=== PATIENT | female | born 1980 | race Caucasian/White ===

== ENCOUNTER 2023-09-27 12:06 | Inpatient (IN) | payer BC, SELFPAY ==
--- NOTE | 2023-09-27 12:14 | ED.PSYCH ---
HPI - Psych General Chief Complaint: Psychiatric Symptoms Stated Complaint: SI Time Seen by Provider: 09/27/23 12:53 Source: patient Mode of arrival: ambulatory Limitations: no limitations History of Present Illness HPI Narrative: 43 year old female with pmhx significant for CE and depression presents to the ED today for evaluation of depression and suicidal ideation with plan x1 month. Patient admits to recent medication changes since the fall. She was placed on vrylar at the beginning of August which sent her into a manic phase where she was not eating, drinking or sleeping. She was taken off of this at the beginning of this month. After conversation with prescriber, patient has been off medications for the last 3 weeks. Over this time, she has felt increasingly depressed and has had thoughts of committing suicide by overdosing on medications at home. She states that the only reason she has not already done this is that she has 2 young children at home. Denies previous attempts at ending her life. Denies HI. Denies ah/th/vh. Denies etoh consumptions. Denies illicit substance use. Denies any physical concerns at present. Related Data Home Medications Medication Instructions Recorded Confirmed clonazepam 0.5 mg tablet (Klonopin) 0.5 mg PO BID PRN anxiety 09/27/23 09/27/23 lurasidone 20 mg tablet 20 mg PO DAILY 09/27/23 09/27/23 Allergies Allergy/AdvReac Type Severity Reaction Status Date / Time Penicillins [PENICILLINS] Allergy Mild RASH Unverified 04/22/20 19:49 vancomycin Allergy Rash Verified 09/27/23 12:15 Review of Systems Review of Systems: Constitutional: No fever, chills, fatigue, night sweats, weight changes ENT/Mouth: No ear pain, hearing loss, nasal congestion, sinus pain, rhinorrhea, sore throat Eyes: No eye pain, swelling, redness, vision changes, discharge Cardio: No chest pain, palpitations, DUMONT, orthopnea, peripheral edema Pulm: No SOB, cough, sputum, wheezing, dyspnea, hemoptysis GI: No nausea, vomiting, hematemesis, abdominal pain, diarrhea, constipation, hematochezia, melena : No irregular bleeding, dysuria, frequency, urgency, hesitancy, hematuria, flank pain, urinary flow changes, urinary incontinence or retention MSK: No back pain, neck pain, joint pain, myalgias Skin: No lesions, rashes Neuro: No weakness, numbness, paresthesias, LOC, dizziness, headache Psych: No anxiety/panic, HI, AH/VH, +depression, +SI All other systems reviewed and are negative. Neurologic: Reports Abnormal speech present [facility] Past Medical History Attestation statement: The following information was validated with the patient. Source: old records reviewed and nursing notes reviewed Social History Social History Advance Directives: No Advance Directives Information Provided: No Physical Exam Vital Signs: Vital Signs: Last Vital Signs Temp 98 F 09/27/23 12:15 Pulse 71 09/27/23 12:15 Resp 16 09/27/23 12:15 BP 119/78 09/27/23 12:15 Pulse Ox 99 09/27/23 12:15 O2 Del Method Room Air 09/27/23 12:15 BMI result Body Mass Index 19.9 Vital signs stable. Const: Other: + tearful General: cooperative, healthy appearing, comfortable and no acute distress Orientation/consciousness: patient oriented x3 Limitations: no limitations HEENT: Head: Yes normal to inspection, Yes No palpable skull fracture present, Yes normocephalic and Yes atraumatic Eyes: General: appearance normal, both eyes and all related structures Conjunctivae: conjunctivae normal Sclerae: sclerae normal Pupils: Equal, round and reactive pupils present Neck: Neck: Yes normal visual inspection and Yes full ROM Resp: Effort & Inspection: normal respiratory effort Auscultation: clear to auscultation bilaterally Cardio: Rate: regular rate Rhythm: regular rhythm Skin: General skin exam: no rashes or lesions noted Neuro: General: patient oriented x3 and gait normal Cranial nerves: Yes Equal, round and reactive pupils present Speech: Abnormal speech present Gait exam (Neuro): Normal gait present Psych: Appearance: grossly normal Speech and movement: Normal speech and movement present Affect: Sad affect present Attitude: cooperative Thought process: Normal thought process present Thought content: Normal thought content present Course Course Course Narrative: This is a rapid medical exam. Deferred additional HPI, ROS, PE to primary provider. 43 yo female with history of depression, anxiety here with suicidal thoughts, intrusive thoughts, feeling anxious since beginning of September. Recently started latuda, clonazepam. Plan to overdose on medication. No physical complaints Ordered labs,HERRERA Reevaluation(s) Reevaluation #1: 1521-- CBC without leukocytosis or anemia. H & H stable. No left shift. Chemistry without acute electrolyte abnormality requiring intervention. Normal renal and liver function. Urine with large amount of blood and RBCs consistent with current menstruation. Negative urine test. No evidence of urinary infection. Ethanol undetectable. Drug screen undetectable. > physician observation initiated pending care team and disposition Medical Decision Making Medical Decision Making [facility] Narrative: 43 year old female with pmhx significant for CE and depression presents to the ED today for evaluation of depression and suicidal ideation with plan x1 month. Vital signs stable. Afebrile. She is nontoxic-appearing and in no acute distress. Sad affect, tearful. No skin lesions or rashes. RRR. Lungs are CT bilaterally. Clinical concern for depression, anxiety, suicidal ideation. Lower suspicion for polysubstance use, etoh intoxication. Plan for basic labs, UA, UDS, and care team consult. Differential Diagnosis Differential Diagnoses: The differential diagnosis associated with the presentation includes as above. Admission/Observation Consideration of admission/observation: Escalation of care including admission/observation considered Lab Data [facility] Lab Attestation statement: I reviewed the patient's lab results. as above. 09/27/23 12:25 09/27/23 12:25 Labs: Lab Results 09/27/23 09/27/23 Range/Units 12:25 13:03 WBC 6.8 (4.8-10.8) X10*3/uL RBC 5.10 (4.20-5.50) X10*6/uL Hgb 14.8 (12.0-16.0) g/dl Hct 43.8 (37.0-47.0) % MCV 85.9 (80.0-98.0) fL MCH 29.0 (27.0-33.0) pg MCHC 33.8 (31.0-35.0) g/dl RDW 11.8 (11.0-16.0) % Plt Count 242 (160-400) X10*3/uL MPV 11.5 (9.4-12.3) fL Immature Gran % (Auto) 0.3 (0.0-0.4) % Neut % (Auto) 77.6 H (45-73) % Lymph % (Auto) 16.1 L (20-40) % Carter % (Auto) 5.6 (2-11) % Eos % (Auto) 0.1 (0-4) % Baso % (Auto) 0.3 (0-2) % Lymph # (Auto) 1.1 L (1.2-4.9) X10*3/uL Carter # (Auto) 0.4 (0.1-1.2) X10*3/uL Eos # (Auto) 0.0 (0.0-0.4) X10*3/uL Baso # (Auto) 0.0 (0.0-0.2) X10*3/uL Abs Immat Gran (auto) 0.02 (0.00-0.03) X10*3/uL Absolute Neuts (auto) 5.2 (2.0-8.3) x10*3/uL Absolute Nucleated RBC 0.000 (0.0-0.012) X10*3/uL Nucleated RBC % (auto) 0.0 (0.0-0.2) /100WBC Sodium 142 (135-145) mmol/L Potassium 3.5 (3.3-5.1) mmol/L Chloride 106 (96-108) mmol/L Carbon Dioxide 27 (22-29) mmol/L Anion Gap 13 (12-20) BUN 9 (9-16) mg/dL Creatinine 0.74 (0.5-1.4) mg/dL Estim Creat Clear Calc 92.7 Estimated GFR > 60 Random Glucose 97 (60-115) mg/dL Calcium 9.5 (8.4-10.2) mg/dL Total Bilirubin 0.4 (0.0-1.0) mg/dL Direct Bilirubin 0.2 (0.0-0.5) mg/dL AST 16 (5-31) U/L ALT 11 (0-31) U/L Alkaline Phosphatase 55 (39-117) U/L Total Protein 7.5 (6.5-8.0) g/dL Albumin 4.6 (3.5-5.0) g/dL Urine Color Yellow Urine Appearance Clear Urine pH 5.5 (5.0-9.0) Ur Specific [place] 1.020 (1.005-1.025) Urine Protein Negative (Neg-Trace) mg/dL Urine Glucose (UA) Negative (Negative) mg/dL Urine Ketones 15 (Negative) mg/dL Urine Blood Large (3+) H (Negative) Urine Nitrite Negative (Negative) Ur Leukocyte Esterase Negative (Negative) Urine RBC 11-20 H (0-2) /HPF Urine WBC 0-5 (0-5) /HPF Ur Squamous Epith Cells 0-2 (0-2) /HPF Calcium Oxalate Crystal Present Urine Bacteria None Seen (None Seen) Hyaline Casts 0-2 (0-2) /LPF Urine Test NEGATIVE (NEGATIVE) Salicylates < 5.0 L (15-30) mg/dL Urine Opiates Screen Not Detected (Not Detect) Urine Fentanyl Screen Not Detected (Not Detect) Acetaminophen < 3 (<30) mcg/mL Ur Barbiturates Screen Not Detected (Not Detect) Ur Phencyclidine Scrn Not Detected (Not Detect) Ur Amphetamines Screen Not Detected (Not Detect) U Benzodiazepines Scrn Not Detected (Not Detect) Urine Cocaine Screen Not Detected (Not Detect) U Marijuana (THC) Screen Not Detected (Not Detect) Ethyl Alcohol < 10 mg/dL Chronic Conditions Patient?s care impacted by: Other (Anxiety, depression) Social Determinants Patient?s care significantly limited by Social Determinants of Health including: Other Social Determinant of Health Discharge Plan Discharge Clinical Impression: Depression, Suicidal ideation Patient Disposition: Still a Patient Prescriptions: No Action clonazepam [Klonopin] 0.5 mg tablet 0.5 mg PO BID PRN (Reason: anxiety) lurasidone 20 mg tablet 20 mg PO DAILY Interventions: Sutton-Suicide Risk Severity Scale Last Done: 09/27/23 15:06
[2023-09-27 12:15] VITALS: BP 119/78; PULSE 71; RESP 16; TEMP 36.6; O2SAT 99; BMI 19.9
[2023-09-27 12:35] LABS: MANUAL DIFF FLAG NO
[2023-09-27 12:42] LABS: Basophils Percent Auto 0.3 % (0-2); Eosinophils Percent Auto 0.1 % (0-4); Hematocrit 43.8 % (37.0-47.0); Hemoglobin 14.8 g/dl (12.0-16.0); Imm Gran Abs Auto 0.02 X10*3/uL (0.00-0.03); Imm Gran Pct Auto 0.3 % (0.0-0.4); Lymphocytes Absolute Auto 1.1 X10*3/uL (1.2-4.9); Lymphocytes Percent Auto 16.1 % (20-40); Mean Corpuscular HGB Conc 33.8 g/dl (31.0-35.0); Mean Corpuscular Volume 85.9 fL (80.0-98.0); Mean Platelet Volume 11.5 fL (9.4-12.3); Monocytes Absolute Auto 0.4 X10*3/uL (0.1-1.2); Monocytes Percent Auto 5.6 % (2-11); Neutrophils Absolute Auto 5.2 x10*3/uL (2.0-8.3); Neutrophils Percent Auto 77.6 % (45-73); Platelet Count 242 X10*3/uL (160-400); Red Cell Distribution Width 11.8 % (11.0-16.0); White Blood Count 6.8 X10*3/uL (4.8-10.8)
[2023-09-27 12:49] LABS: UPreg QC Valid YES; Urine Pregnancy NEGATIVE (NEGATIVE)
[2023-09-27 12:55] LABS: Acetaminophen LAB < 3 mcg/mL (<30); Alanine Aminotransferase 11 U/L (0-31); Albumin Level 4.6 g/dL (3.5-5.0); Alkaline Phosphatase 55 U/L (39-117); Anion Gap 13 (12-20); Aspartate Amino Transferase 16 U/L (5-31); Bilirubin Direct 0.2 mg/dL (0.0-0.5); Bilirubin Total 0.4 mg/dL (0.0-1.0); Blood Urea Nitrogen 9 mg/dL (9-16); Calcium 9.5 mg/dL (8.4-10.2); Carbon Dioxide 27 mmol/L (22-29); Chloride 106 mmol/L (96-108); Creatinine Clr Calc Pharmacy 92.7; Estimated Glomerular Filt Rate > 60; Ethanol < 10 mg/dL; Glucose Random 97 mg/dL (60-115); Potassium 3.5 mmol/L (3.3-5.1); Salicylate < 5.0 mg/dL (15-30); Sodium 142 mmol/L (135-145); Total Protein 7.5 g/dL (6.5-8.0)
[2023-09-27 12:58] LABS: Amphetamine Screen Urine Not Detected (Not Detect); Barbiturates, Urine Not Detected (Not Detect); Benzodiazepines Screen Urine Not Detected (Not Detect); Cannabinoid Screen Urine Not Detected (Not Detect); Cocaine Screen Urine Not Detected (Not Detect); Fentanyl, urine Not Detected (Not Detect); Opiate Screen Urine Not Detected (Not Detect); Phencyclidine Screen Urine Not Detected (Not Detect)
[2023-09-27 13:13] LABS: Appearance Urine Clear; Color Urine Yellow; Glucose Urine UA Negative (Negative); Leukocyte Esterase Urine Negative (Negative); Nitrite Urine Negative (Negative); PH 5.5 (5.0-9.0); UMIC TRIGGER UACC YES; Urine Blood Large (3+) (Negative); Urine Ketones 15 mg/dL (Negative); Urine Protein Negative (Neg-Trace)
[2023-09-27 13:27] LABS: Bacteria Urine None Seen (None Seen); Calcium Oxalate Crystals Urine Present; Hyaline Casts Urine 0-2 /LPF (0-2); Squamous Epithelial Cell Urine 0-2 /HPF (0-2); WBC Urine 0-5 /HPF (0-5)
[2023-09-27] MEDS: LORazepam 1 MG TABLET PO (17:26)
[2023-09-27] MEDS: clonazePAM 0.5 MG TABLET PO (21:14)
[2023-09-28 06:21] VITALS: BP 117/78; PULSE 85; RESP 16; TEMP 36.8; O2SAT 98
--- NOTE | 2023-09-28 06:30 | PC.NURSE ---
Patient requested meds for her anxiety, PRN Klonopin 0.5 mg administered as ordered with + effect, patient slept through the night, VSS, no distress observed/reported at this time, patient is in her room reading and drinking tea, no behavior issues during 7P to 7a shift, follows direction well and expresses need appropriately, disposition per care team is voluntary inpatient bed search, medication compliant, will continue to monitor.
[2023-09-28] MEDS: Lurasidone HCl 20 MG TABLET PO (07:19)
--- NOTE | 2023-09-28 08:09 | ECG_ITS ---
Test Reason : prolong qt Blood Pressure : / mmHG Vent. Rate : 068 BPM Atrial Rate : 068 BPM P-R Int : 152 ms QRS Dur : 076 ms QT Int : 380 ms P-R-T Axes : 077 056 048 degrees QTc Int : 404 ms Normal sinus rhythm Normal ECG No previous ECGs available Referred By: Armando Sequeira Electronically Signed By:DHRUV WARNER MD
--- NOTE | 2023-09-28 08:58 | PHA.MEDREC ---
Pharmacy Consult ? Medication Reconciliation Pharmacy has completed the medication reconciliation. Reviewed med rec done by nursing
[2023-09-28 09:19] LABS: IDNOW Serial# 6674DD1D
[2023-09-28 09:20] LABS: COVID-19 Test Negative (Negative)
--- NOTE | 2023-09-28 12:08 | PC.NURSE ---
Patient awake and alert. skin pwd, resp even and non labored. able to make needs known. up and walking around the unit. calm and cooperative.
[2023-09-28 14:15] VITALS: BP 107/67; PULSE 91; RESP 14; TEMP 36.9; O2SAT 98
[2023-09-28 14:35] VITALS: BP 138/75; PULSE 99; RESP 16; TEMP 36.8; O2SAT 99
[2023-09-28 14:40] VITALS: BMI 19.5
--- NOTE | 2023-09-28 15:33 | PC.NURSE ---
Pt arrived to unit at 1430. Patient Safety Search completed upon arrival to unit by va underwriter and Pedro Luis PEDERSEN. Pt placed on safety checks board and census board. Vital signs, height, and weight obtained and documented. Pt oriented to unit and provided with toiletries and menus. Update given to primary nurse.
--- NOTE | 2023-09-28 19:21 | PC.ADMIT ---
Pt is a 43 year old female admitted to at 14:40 from [facility] for treatment ?of depression, severe OCD and suicidal ideation x1 month. Pt has had recent medication changes since the fall of 2022. Patient is alert and oriented x 4. Patient reports no substance or alcohol use and tox screen verifies. Pt is reporting intrusive thoughts but no SI, she states that she would never do that to her children. Pt is and has 2 children however rest of family is overseas. Pt is very nervous about being here and frightened that she made the wrong choice to come voluntarily. Pt calm and cooperative. Pt reports no physical ailments. Skin check done, pt oriented to the unit and placed on 15 minute safety checks. Admission completed..
[2023-09-28 19:45] VITALS: BP 124/73; PULSE 88; RESP 16; TEMP 36.8; O2SAT 98
[2023-09-28] MEDS: clonazePAM 0.5 MG TABLET PO (20:34)
[2023-09-29 07:49] LABS: Estimated Average Glucose 97 mg/dL
[2023-09-29 07:58] LABS: Cholesterol 157 mg/dL (<200); HDL Cholesterol 59 mg/dL (>40); LDL Cholesterol Calculated 85 mg/dL (<100); Magnesium 1.9 mg/dL (1.6-2.6); Triglycerides 68 mg/dL (<150)
[2023-09-29 08:19] LABS: Thyroid Stimulating Hormone 1.57 uIU/mL (0.32-4.0)
[2023-09-29 08:30] LABS: Folate 14.5 ng/mL (> or = 4.0); Vitamin B12 915 pg/mL (200-900)
[2023-09-29 09:30] VITALS: BP 109/64; PULSE 84; RESP 16; TEMP 36.2; O2SAT 99
[2023-09-29] MEDS: Lurasidone HCl 20 MG TABLET PO (10:27)
[2023-09-29] MEDS: clonazePAM 0.5 MG TABLET PO ×2 (10:27→21:07)
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
[2023-09-29 16:56] VITALS: BP 123/72; PULSE 68; RESP 18; TEMP 36.7; O2SAT 100
[2023-09-29] MEDS: clomiPRAMINE HCl 25 MG CAPSULE PO (21:06)
[2023-09-29] MEDS: QUEtiapine Fumarate 50 MG TABLET PO (21:06)
[2023-09-30 08:21] VITALS: BP 115/70; PULSE 100; RESP 16; TEMP 36.7; O2SAT 97
--- NOTE | 2023-09-30 11:46 | P.PNPSI_ITS ---
Subjective Subjective Date of Service: 09/30/23 Reason For Visit: SI Interim History: Patient seen. Slept better. Feels tired. Would like to hold off on further increase in Seroquel. No side effects with the Clomipramine. No SI/HI/AVH. Medication Compliance: Yes Review of Systems Review of Systems Constitutional: No fever, chills, fatigue, night sweats, weight changes ENT/Mouth: No ear pain, hearing loss, nasal congestion, sinus pain, rhinorrhea, sore throat Eyes: No eye pain, swelling, redness, vision changes, discharge Cardio: No chest pain, palpitations, DUMONT, orthopnea, peripheral edema Pulm: No SOB, cough, sputum, wheezing, dyspnea, hemoptysis GI: No nausea, vomiting, hematemesis, abdominal pain, diarrhea, constipation, hematochezia, melena : No irregular bleeding, dysuria, frequency, urgency, hesitancy, hematuria, flank pain, urinary flow changes, urinary incontinence or retention MSK: No back pain, neck pain, joint pain, myalgias Skin: No lesions, rashes Neuro: No weakness, numbness, paresthesias, LOC, dizziness, headache Psych: No anxiety/panic, HI, AH/VH, +depression, +SI All other systems reviewed and are negative. Reports Abnormal speech present Mental Status Exam Mental Status Exam Narrative: General appearance: casually appropriate dress. Thin, Good hygiene.? Eye contact: WNL. Musculoskeletal: Normal muscle strength/tone, Normal gait and station, No abnormal involuntary movements like tremors, EPS or dyskinesia. No psychomotor agitation or retardation. Normal posture.??? Manner/behavior: cooperative and not guarded Speech:? Fluent, with normal rate, tone and volume. Language: No receptive or expressive language impairment? Mood: depressed. Affect: constricted range, congruent to mood and without lability? Thought process/associations: Linear with no flight of ideas or loose associations.?? Thought content:?Obsessive ruminations, guilt, shame? Hallucinations: No auditory, visual or other hallucinations No?flashbacks, nightmares or dissociation? ? Suicidality/self-destructive behavior: none, future oriented, hopeful.? ? Homicidally/violence: none.? Reliability: good.? ? Judgment: preserved.? ? Insight: preserved Cognition: Alert and oriented to time, place and person. Attention, concentration and fund of knowledge are normal.? Impulse control and emotional regulation: preserved. Intelligence estimate: average.? Diagnostics Vital Signs (24Hr): Vital Signs - 24 hr 09/29/23 16:56 09/30/23 08:21 Temperature 98.1 F 98.1 F Pulse Rate 68 100 Respiratory Rate 18 16 Blood Pressure 123/72 115/70 Pulse Oximetry 100 97 Oxygen Delivery Method Room Air Room Air BMI result Body Mass Index 19.5 Labs 09/27/23 12:25 09/27/23 12:25 Labs: Laboratory Results - last 48 hr 09/29/23 07:19 Estimat Average Glucose 97 Hemoglobin A1c % 5.0 Magnesium 1.9 Triglycerides 68 Cholesterol 157 LDL Cholesterol, Calc 85 HDL Cholesterol 59 Vitamin B12 915 H Folate 14.5 TSH 1.57 Free T4 1.20 Medications Medications Current Medications Acetaminophen (Acetaminophen 325 Mg Tablet) 650 mg PO Q6H PRN PRN Reason: Headache/Pain Mild Scale (1-3) Al Hydroxide/Mg Hydroxide (Magnesium Hydrox/Alum Hydrox 30 Ml Oral.Susp) 30 ml PO Q6H PRN PRN Reason: Heartburn/Nausea Clomipramine HCl (Clomipramine Hcl 25 Mg Capsule) 50 mg PO BEDTIME DEISI Clonazepam (Clonazepam 0.5 Mg Tablet) 0.5 mg PO BID PRN PRN Reason: anxiety Last Admin: 09/29/23 21:07 Dose: 0.5 mg Hydroxyzine HCl (Hydroxyzine Hcl 25 Mg Tablet) 25 mg PO Q6H PRN PRN Reason: Anxiety Magnesium Hydroxide (Milk Of Magnesia 30 Ml Oral.Susp) 30 ml PO DAILY PRN PRN Reason: Constipation Quetiapine Fumarate (Quetiapine Fumarate 50 Mg Tablet) 50 mg PO BEDTIME DEISI Trazodone HCl (Trazodone Hcl 50 Mg Tablet) 50 mg PO BEDTIME MRX1 PRN PRN Reason: Insomnia Allergies Allergies Allergy/AdvReac Type Severity Reaction Status Date / Time Penicillins [PENICILLINS] Allergy Mild RASH Verified 09/30/23 08:15 vancomycin Allergy Rash Verified 09/27/23 12:15 Assessment & Plan Assessment & Plan (1) OCD (obsessive compulsive disorder): Status: Acute Code(s): F42.9 - Obsessive-compulsive disorder, unspecified (2) Depression: Status: Acute Code(s): F32.A - Depression, unspecified Plan 43 year old with treatment resistant and recurrent OCD. She has struggled with this since her teenage years. She has had a recent exacerbation and has failed multiple medication trials of SSRI's and different augmenting antipsychotics. Plan - Admit to inpatient psychiatry - CV - Collateral information from family and providers. - Milieu treatment and group therapy. - Medications: Discussed Clomipramine. EKG reviewed. Start Clomipramine 25 mg HS tonight and 50 mg HS tomorrow. Patient also agrees to restart Seroquel. Will start on Seroquel 50 mg and tomorrow 100 mg HS her previous dose. - Social work evaluation. - Disposition planning. - Patient has an appointment on 10/21 to start [facility]. Consider moving the appointment closer if possible. 09/30: Increase Clomipramine to 50 tonight. Keep Seroquel at 50 mg tonight. otherwise continue current management and treatment plan. Reason for continued inpatient stay Substantial Risk for: inability to function and rapid decompensation Time Spent With Patient Time: Total time managing care of this patient today ____ minutes.
[2023-09-30 17:04] VITALS: BP 132/59; PULSE 68; RESP 16; TEMP 36.7; O2SAT 100
[2023-09-30] MEDS: clomiPRAMINE HCl 25 MG CAPSULE 50 MG PO (20:34)
[2023-09-30] MEDS: QUEtiapine Fumarate 50 MG TABLET PO (20:34)
[2023-10-01 08:00] VITALS: BP 109/64; PULSE 86; RESP 18; TEMP 36.2; O2SAT 97
[2023-10-01 17:13] VITALS: BP 128/72; PULSE 93; RESP 18; TEMP 36.4; O2SAT 99
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
[2023-10-01] MEDS: QUEtiapine Fumarate 50 MG TABLET PO (20:24)
[2023-10-01] MEDS: clomiPRAMINE HCl 25 MG CAPSULE 50 MG PO (20:24)
[2023-10-02 08:05] VITALS: BP 108/65; PULSE 97; RESP 16; TEMP 36.9; O2SAT 97
[2023-10-02] MEDS: clonazePAM 0.5 MG TABLET PO (08:37)
--- NOTE | 2023-10-02 09:55 | P.PNPSI_ITS ---
Subjective Subjective Date of Service: 10/02/23 Reason For Visit: SI Subjective Notes: Conditional Voluntary and 3 Day Healthcare Proxy: No Guardianship: No Medical Problems Affecting Mental Status: No Interim History: Three day notice to 10/03. Planning discharge with return to [facility] on 10/21. Remaining in her room today due to flu sx on the unit. Prepared for discharge. Review of medications, aftercare planning. Working on safety planning with team. Asks to increase Seroquel to 100 mg as she is tolerating current dosing and by hx 100 mg has been effective. Medication Compliance: Yes Side effects from medications: No Attending Groups: No Review of Systems Acute medical concerns: No Medical Review of Systems: unchanged Review of Systems Review of Systems Yes all other systems are reviewed and are negative Mental Status Exam Mental Status Exam Narrative: General appearance: casually appropriate dress. Thin, Good hygiene.? Eye contact: WNL. Musculoskeletal: Normal muscle strength/tone, Normal gait and station, No abnormal involuntary movements like tremors, EPS or dyskinesia. No psychomotor agitation or retardation. Normal posture.??? Manner/behavior: cooperative and not guarded Speech:? Fluent, with normal rate, tone and volume. Language: No receptive or expressive language impairment? Mood: depressed. Affect: constricted range, congruent to mood and without lability? Thought process/associations: Linear with no flight of ideas or loose associations.?? Thought content:?Obsessive ruminations, guilt, shame? Hallucinations: No auditory, visual or other hallucinations No?flashbacks, nightmares or dissociation? ? Suicidality/self-destructive behavior: none, future oriented, hopeful.? ? Homicidally/violence: none.? Reliability: good.? ? Judgment: preserved.? ? Insight: preserved Cognition: Alert and oriented to time, place and person. Attention, concentration and fund of knowledge are normal.? Impulse control and emotional regulation: preserved. Intelligence estimate: average.? Diagnostics Vital Signs (24Hr): Vital Signs - 24 hr 10/01/23 17:13 10/02/23 08:05 Temperature 97.6 F 98.5 F Pulse Rate 93 97 Respiratory Rate 18 16 Blood Pressure 128/72 108/65 Pulse Oximetry 99 97 Oxygen Delivery Method Room Air Room Air BMI result Body Mass Index 19.5 Labs 09/27/23 12:25 02/22/24 12:25 Medications Medications Current Medications Acetaminophen (Acetaminophen 325 Mg Tablet) 650 mg PO Q6H PRN PRN Reason: Headache/Pain Mild Scale (1-3) Al Hydroxide/Mg Hydroxide (Magnesium Hydrox/Alum Hydrox 30 Ml Oral.Susp) 30 ml PO Q6H PRN PRN Reason: Heartburn/Nausea Clomipramine HCl (Clomipramine Hcl 25 Mg Capsule) 50 mg PO BEDTIME DEISI Last Admin: 10/01/23 20:24 Dose: 50 mg Clonazepam (Clonazepam 0.5 Mg Tablet) 0.5 mg PO BID PRN PRN Reason: anxiety Last Admin: 10/02/23 08:37 Dose: 0.5 mg Hydroxyzine HCl (Hydroxyzine Hcl 25 Mg Tablet) 25 mg PO Q6H PRN PRN Reason: Anxiety Magnesium Hydroxide (Milk Of Magnesia 30 Ml Oral.Susp) 30 ml PO DAILY PRN PRN Reason: Constipation Quetiapine Fumarate (Quetiapine Fumarate 50 Mg Tablet) 50 mg PO BEDTIME [facility] Last Admin: 10/01/23 20:24 Dose: 50 mg Trazodone HCl (Trazodone Hcl 50 Mg Tablet) 50 mg PO BEDTIME MRX1 PRN PRN Reason: Insomnia Allergies Allergies Allergy/AdvReac Type Severity Reaction Status Date / Time Penicillins [PENICILLINS] Allergy Mild RASH Verified 09/30/23 08:15 vancomycin Allergy Rash Verified 09/27/23 12:15 Assessment & Plan Assessment & Plan (1) OCD (obsessive compulsive disorder): Status: Acute Code(s): F42.9 - Obsessive-compulsive disorder, unspecified (2) Depression: Status: Acute Code(s): F32.A - Depression, unspecified Plan 43 year old with treatment resistant and recurrent OCD. She has struggled with this since her teenage years. She has had a recent exacerbation and has failed multiple medication trials of SSRI's and different augmenting antipsychotics. Plan - Admit to inpatient psychiatry - CV - Collateral information from family and providers. - Milieu treatment and group therapy. - Medications: Discussed Clomipramine. EKG reviewed. Start Clomipramine 25 mg HS tonight and 50 mg HS tomorrow. Patient also agrees to restart Seroquel. Will start on Seroquel 50 mg and tomorrow 100 mg HS her previous dose. - Social work evaluation. - Disposition planning. - Patient has an appointment on 10/21 to [place] [facility] [place] Consider moving the appointment closer if possible. 09/30: Increase Clomipramine to 50 tonight. Keep Seroquel at 50 mg tonight. otherwise continue current management and treatment plan. 10/01: Continue tx. 10/02: Three day notice to 10/03. Discharge planning Increase Seroquel to 100 mg Informed Consent: understands Reason for continued inpatient stay Substantial Risk for: stable for discharge Time Spent With Patient Time: Total time managing care of this patient today ____ minutes.
[2023-10-02 19:30] VITALS: BP 123/69; PULSE 95; RESP 16; TEMP 36.6; O2SAT 97
[2023-10-02] MEDS: QUEtiapine Fumarate 100 MG TABLET PO (20:25)
[2023-10-02] MEDS: clomiPRAMINE HCl 25 MG CAPSULE 50 MG PO (20:25)
[2023-10-03 08:06] VITALS: BP 102/66; PULSE 111; RESP 16; TEMP 36.9; O2SAT 97
--- NOTE | 2023-10-03 16:29 | P.DS_ITS ---
DS: Providers Provider Date of Service: 10/03/23 Date of admission: 09/28/23 13:11 Date of discharge: 10/03/23 Primary care physician: Annel Morgan MD Admitting clinician: Duarte Gallardo Attending physician on admission: Duarte Gallardo Attending physician on discharge: Poncho Woodson Discharging clinician: Nicole Myrick DS: Diagnosis Discharge Diagnosis (1) OCD (obsessive compulsive disorder): Status: Acute (2) Depression: Status: Acute DS: Medications Discharge Medications Home Medications: Home Medications Medication Instructions Recorded Confirmed clonazepam 0.5 mg tablet (Klonopin) 0.5 mg PO BID PRN anxiety 09/27/23 09/27/23 Previous Rx's Medication Instructions Recorded clomipramine 25 mg capsule 50 mg (2 x 25 mg) PO BEDTIME #30 10/02/23 caps quetiapine 100 mg tablet 100 mg PO BEDTIME #30 tabs 10/02/23 Mental Status Exam Mental Status Exam Narrative: General appearance: casually appropriate dress. Thin, Good hygiene.? Eye contact: WNL. Musculoskeletal: Normal muscle strength/tone, Normal gait and station, No abnormal involuntary movements like tremors, EPS or dyskinesia. No psychomotor agitation or retardation. Normal posture.??? Manner/behavior: cooperative and not guarded Speech:? Fluent, with normal rate, tone and volume. Language: No receptive or expressive language impairment? Mood: depressed. Affect: constricted range, congruent to mood and without lability? Thought process/associations: Linear with no flight of ideas or loose associations.?? Thought content:?Obsessive ruminations, guilt, shame? Hallucinations: No auditory, visual or other hallucinations No?flashbacks, nightmares or dissociation? ? Suicidality/self-destructive behavior: none, future oriented, hopeful.? ? Homicidally/violence: none.? Reliability: good.? ? Judgment: preserved.? ? Insight: preserved Cognition: Alert and oriented to time, place and person. Attention, concentration and fund of knowledge are normal.? Impulse control and emotional regulation: preserved. Intelligence estimate: average.? Data Data Completed and Pending Completed studies during hospitalization [Text1]: 09/27/23 09/27/23 09/28/23 12:25 13:03 08:42 WBC 6.8 RBC 5.10 Hgb 14.8 Hct 43.8 MCV 85.9 MCH 29.0 MCHC 33.8 RDW 11.8 Plt Count 242 MPV 11.5 Immature Gran % (Auto) 0.3 Neut % (Auto) 77.6 H Lymph % (Auto) 16.1 L [place] % (Auto) 5.6 Eos % (Auto) 0.1 Baso % (Auto) 0.3 Lymph # (Auto) 1.1 L [place] # (Auto) 0.4 Eos # (Auto) 0.0 Baso # (Auto) 0.0 Abs Immat Gran (auto) 0.02 Absolute Neuts (auto) 5.2 Absolute Nucleated RBC 0.000 Nucleated RBC % (auto) 0.0 Sodium 142 Potassium 3.5 Chloride 106 Carbon Dioxide 27 Anion Gap 13 BUN 9 Creatinine 0.74 Estim Creat Clear Calc 92.7 Estimated GFR > 60 Random Glucose 97 Estimat Average Glucose Hemoglobin A1c % Calcium 9.5 Magnesium Total Bilirubin 0.4 Direct Bilirubin 0.2 AST 16 ALT 11 Alkaline Phosphatase 55 Total Protein 7.5 Albumin 4.6 Triglycerides Cholesterol LDL Cholesterol, Calc HDL Cholesterol Vitamin B12 Folate TSH Free T4 Urine Color Yellow Urine Appearance Clear Urine pH 5.5 Ur Specific [place] 1.020 Urine Protein Negative Urine Glucose (UA) Negative Urine Ketones 15 Urine Blood Large (3+) H Urine Nitrite Negative Ur Leukocyte Esterase Negative Urine RBC 11-20 H Urine WBC 0-5 Ur Squamous Epith Cells 0-2 Calcium Oxalate Crystal Present Urine Bacteria None Seen Hyaline Casts 0-2 Urine Test NEGATIVE Salicylates < 5.0 L Urine Opiates Screen Not Detected Urine Fentanyl Screen Not Detected Acetaminophen < 3 Ur Barbiturates Screen Not Detected Ur Phencyclidine Scrn Not Detected Ur Amphetamines Screen Not Detected U Benzodiazepines Scrn Not Detected Urine Cocaine Screen Not Detected U Marijuana (THC) Screen Not Detected Ethyl Alcohol < 10 COVID-19 (TIANA) Negative COVID-19 Clin Com See Note 09/29/23 07:19 WBC RBC Hgb Hct MCV MCH MCHC RDW Plt Count MPV Immature Gran % (Auto) Neut % (Auto) Lymph % (Auto) [place] % (Auto) Eos % (Auto) Baso % (Auto) Lymph # (Auto) [place] # (Auto) Eos # (Auto) Baso # (Auto) Abs Immat Gran (auto) Absolute Neuts (auto) Absolute Nucleated RBC Nucleated RBC % (auto) Sodium Potassium Chloride Carbon Dioxide Anion Gap BUN Creatinine Estim Creat Clear Calc Estimated GFR Random Glucose Estimat Average Glucose 97 Hemoglobin A1c % 5.0 Calcium Magnesium 1.9 Total Bilirubin Direct Bilirubin AST ALT Alkaline Phosphatase Total Protein Albumin Triglycerides 68 Cholesterol 157 LDL Cholesterol, Calc 85 HDL Cholesterol 59 Vitamin B12 915 H Folate 14.5 TSH 1.57 Free T4 1.20 Urine Color Urine Appearance Urine pH Ur Specific [place] Urine Protein Urine Glucose (UA) Urine Ketones Urine Blood Urine Nitrite Ur Leukocyte Esterase Urine RBC Urine WBC Ur Squamous Epith Cells Calcium Oxalate Crystal Urine Bacteria Hyaline Casts Urine Test Salicylates Urine Opiates Screen Urine Fentanyl Screen Acetaminophen Ur Barbiturates Screen Ur Phencyclidine Scrn Ur Amphetamines Screen U Benzodiazepines Scrn Urine Cocaine Screen U Marijuana (THC) Screen Ethyl Alcohol COVID-19 (TIANA) COVID-19 Clin Com DS: Summary Hospital Course Hospital Course: Admission to adult psychiatry for exacerbation of depression, obsessive compulsive disorder with multiple medication trials, intrusive thoughts and symptoms which were interfering with daily functioning. Medications were evaluated, initiated and adjusted. Pt signed a three day notice and will return to her out patient team for ongoing care. She reported tolerating new regime and symptom relief. Status at Discharge Functional status at discharge: independent ambulation Overall status at discharge: patient is progressing back to baseline Time Spent with Patient Time attestation: Total time managing care of this patient today ____ minutes. Time spent: Less than 30 minutes Discharge Plan Discharge Anticipated Discharge Date/Time: 10/03/23 12:00 Patient Disposition: Home, Self-Care Discharge Diagnosis: Recurrent Major Depression Obsessive Compulsive Disorder Referrals: Ariadna Alonzo Nurse Practitioner [Other] - 10/09/23 2:00 pm (Telehealth) Danielle aBllard Psychotherapist [Other] - 3-5 Days (Reach out to her to confirm your appt. ) Annel Morgan MD [Primary Care Provider] - (Pt declined to sign release for PCP. Pt reported she has a follow up appointment scheduled in November with PCP. ) Discharge Medications: New quetiapine 100 mg Tablet 100 mg PO BEDTIME Qty: 30 0RF clomipramine 25 mg Capsule 50 mg PO BEDTIME Qty: 30 0RF Continued clonazepam [Klonopin] 0.5 mg tablet 0.5 mg PO BID PRN (Reason: anxiety) Discontinued lurasidone 20 mg tablet 20 mg PO DAILY Discharge Orders: Discharge Order (Routine); Ordered 10/03/23 Ordered By: Nicole Myrick Diet: Advance to usual diet Activity on Discharge: As tolerated Stand Alone Forms: Patient Portal Discharge page, Community Support Care Plan Goals: Mood and Behavioral Stabilization Health Concerns: Mood and Behavioral Stabilization Plan of Treatment: Attend scheduled appointments Take medications as directed Assessment: Pt interviewed prior to discharge and found to be fully oriented and without SI/HI. Pt has insight and demonstrates good judgment in terms of wanting to pursue treatment. Pt is not in imminent risk of harm to self or others and has a safety plan that includes presenting to the closest ER or calling 911 if feeling unsafe. Pt has been observed closely by nursing and unit staff throughout admission. Pt has not engaged in any behaviors that suggest dangerousness to self or others and has demonstrated appropriate behaviors and impulse control. Discharge Date/Time: 10/03/23 11:25
== END 2023-10-03 11:25 | disposition home or self-care (01) | DRG 754 ==
LOC: HO.ED 15:16 → HO.PM5 09-28 13:29
PROVIDERS: Emergency Medicine; Nurse Practitioner Family; Admitting Provider Clinical Nurse Specialist Psychiatric/Mental Health, Adult; Emergency Provider Emergency Medicine; PCP Internal Medicine; Visit Provider Clinical Nurse Specialist Psychiatric/Mental Health, Adult
DX: F32.9 Major depressive disorder, single episode, unspecified (principal); Z20.822 Contact with and (suspected) exposure to COVID-19; F42.9 Obsessive-compulsive disorder, unspecified; Z79.899 Other long term (current) drug therapy
CPT/HCPCS: 36415; 80048; 80061; 80076; 80143; 80179; 80307; 81001; 81025; 82607; 82746; 83036; 83735; 84439; 84443; 85025; 87635; 93005; 99285; S9485

== ENCOUNTER → 2023-09-28 08:09 | Outpatient (BNV) | payer BC, SELFPAY | PROVIDERS: Emergency Provider Emergency Medicine; PCP Internal Medicine; Visit Provider Internal Medicine Cardiovascular Disease | DX: I45.81 Long QT syndrome (principal) | CPT/HCPCS: 93010 ==

== ENCOUNTER → 2023-09-28 13:11 | Outpatient (BNV) | payer BC, SELFPAY | PROVIDERS: Admitting Provider Clinical Nurse Specialist Psychiatric/Mental Health, Adult; Emergency Provider Emergency Medicine; PCP Internal Medicine; Visit Provider Psychiatry & Neurology Psychiatry | DX: F33.2 Major depressive disorder, recurrent severe without psychotic features (principal); F42.9 Obsessive-compulsive disorder, unspecified | CPT/HCPCS: 90792; 99231; 99232; 99238 ==

== ENCOUNTER 2023-11-08 09:15 | Outpatient (RCR) | payer BC, SELFPAY ==
[2023-10-23 11:44] VITALS: BP 100/82; PULSE 99; TEMP 37.1
[2023-10-23 11:46] VITALS: BMI 18.7
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
--- NOTE | 2023-10-25 14:03 | HO.PHP ---
Client's case has been opened and reviewed in treatment team.
--- NOTE | 2023-10-26 23:55 | P.PNPSP_ITS ---
Subjective Subjective Date of Service: 10/26/23 Reason For Visit: anxiety,depression Interim History: Met with patient for follow-up today following weekly staff meeting yesterday. Reviewed patient's case. No changes noted thus far. She reports she continues to struggle with obsessive thoughts which she speaks a little more freely today, but is still notably guarded. SHe says her mood is okay and does not have many complaints initially. She has started the propranolol 10 mg qAM and is not sure if that is what is making her tired during the day. She also takes Seroquel 100 mg qhs at night which she feels has been helping with her depression and mood, even moreso - she indicates - than other antidepressants. Her tremor is no worse, perhaps she it is better. She suspects it is modestly improved. Has been taking a single dose most day and not taking a 2nd dose later although did not have a clear reason. I suggest we need to make a decision on the clomipramine - either increase the dose to reach a therapeutic dose so that it is addressing the OCD. If she feels reluctant to remain on clomipramine (or if we increase the dose and she runs into tolerance issues) we can switch her over to another AD. SHe has not been on Luxov. We also discuss the use of NLs as augmentation for refractory OCD. The Seroquel dose she currently has (100 mg IR) does not appear to be helpful with the OCD, or at least only modestly. It does however help with sleep and depression. There is no clear history of hypomanic/manic symptoms or episodes but will continue to explore further. She currently denies any thoughts of harming herself or others. She admits to feelings of transient hopelessness and helpessness, but denies any passive SI. Medication Compliance: Yes Side effects from medications: Yes (as noted above) Attending Groups: Yes Review of Systems Acute medical concerns: No Mental Status Exam Mental Status Exam Narrative: Alert, oriented, in no acute distress. Calm, cooperative, inhibited but engageable. No psychomotor agitation or neurovegetative retardation. Eye contact maintained. Mood depressed, affect constricted. Speech normal. Thought process linear, coherent. Thought content related to stressors, transient hopelessness, denies SI or HI. No paranoia or delusional content elicited. No evidence of psychosis. Insight and judgment - fair but adequate. Diagnostics Vital Signs (24Hr): BMI result Body Mass Index 18.7 Assessment & Plan Assessment & Plan (1) OCD (obsessive compulsive disorder): Qualifiers: Obsessive-compulsive disorder type: mixed obsessional thoughts and acts Qualified Code(s): F42.2 - Mixed obsessional thoughts and acts Status: Acute Code(s): F42.9 - Obsessive-compulsive disorder, unspecified (2) Mood disorder: Status: Acute Code(s): F39 - Unspecified mood [affective] disorder Assessment and Plan: MDD, recurrent, severe without psychotic features r/o Bipolar spectrum (3) Other phobic anxiety disorders: Status: Acute Code(s): F40.8 - Other phobic anxiety disorders Assessment and Plan: 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 will order EKG once clomipramine dose increased/optimized Further lab work, UDS as indicated Consider obtaining clomipramine level if tacchycardia, tremors continue? or consider switching (perhaps fluvoxamine) if TCA not tolerated continue to monitor Patient educated on: diagnosis, medication risk/benefits and therapeutic strategies Informed Consent: understands Reason for contiued partial hosp. stay Substantial Risk for: inability to function, rapid decompensation and med/psych decompensation Certification I certify that partial hospital treatment is medically necessary due to the symptoms and problems resulting from the patient's mental illness and the failure to treat the patient at the partial hospital level of care would likely result in the patient requiring inpatient psychiatric care which could not be prevented at a less intensive level of care. Total time managing care of this patient today _30___ minutes. Discharge Plan Discharge Attending provider: Suzy Hahn Additional Instructions: Annel has an OP therapist Danielle Ballard through a private practice, in which her next scheduled appointment is November 14, 2023 at 9 AM. Annel has a med provider, Ariadna Toledo, in which her next scheduled appointment is on November 15, 2023 at 10:30 AM. Medications: New propranolol 10 mg tablet 5 - 10 mg PO BID Qty: 20 0RF Continued clonazepam [Klonopin] 0.5 mg tablet 0.5 mg PO BID PRN (Reason: anxiety) Patient Comments: Last use last week. quetiapine 100 mg Tablet 100 mg PO BEDTIME Qty: 30 0RF clomipramine 25 mg Capsule 50 mg PO BEDTIME Qty: 30 0RF Stand Alone Forms: Patient Portal Discharge page
--- NOTE | 2023-10-30 21:35 | P.PNPSP_ITS ---
Subjective Subjective Date of Service: 10/30/23 Reason For Visit: anxiety,depression Interim History: Patient seen for follow up. The tremor is better . She started on propranolol 10 mg, she has been taking this twice daily. She reports tremors still persist, but have improved. Denies any adverse effects of the propranolol. She is however still experiencing other symptoms, presumably from the TCA that have worsened in the past few days including my tongue is sore, feels like I burned it . She also reprots that her body generally feels weird and feels like she is almost sick even though she has no actual signs/symptoms of cold or illness. Reports mood is not good appears very flat, depressed,endorses passive SI, but denies any intention or plan. She reports anhedonia, profound hopelessness, she fears she will never get better. She feels her obsessive thoughts never let up, dominate her waking moments, feels like a prisoner to herself. She does not feel that she can share these thoughts in group, that they are very shameful I would be embarrassed and also anticipates it would be triggering to others. She finds she can only share limited information. I again mention [facility] as a possible referral that might be a helpful treatment option in the future; we agree to revisit this again later in her stay. It is felt that she is not tolerating the clomipramine, and given time constraints, we agree to discontinue this and will switch to Luvox once her symptoms have resolved. In the meantime, I would like to start low dose risperidone as an augmentation strategy. She has been taking Seroquel 100 mg daily at bedtime which helps with sleep, but she denies that it is helpful with any other issues (mood, anxiety, OCD sx). We will allow her to continue on Seroquel on an as needed basis in the meantime. Mental Status Exam Mental Status Exam Narrative: Alert, oriented, in no acute distress. Calm, cooperative, inhibited but engageable. No psychomotor agitation or neurovegetative retardation. Eye contact maintained. Mood depressed, affect blunted. Speech normal. Thought process linear, coherent. Thought content related to stressors, +hopelessness, +transient passive SI without intention, plan. Denies aggressive ideation or HI. No paranoia or delusional content elicited. No evidence of psychosis. Insight and judgment, fair but adequate. Diagnostics Vital Signs (24Hr): BMI result Body Mass Index 18.7 Assessment & Plan Assessment & Plan (1) Mood disorder: Status: Acute Code(s): F39 - Unspecified mood [affective] disorder (2) Other phobic anxiety disorders: Status: Acute Code(s): F40.8 - Other phobic anxiety disorders (3) OCD (obsessive compulsive disorder): Qualifiers: Obsessive-compulsive disorder type: mixed obsessional thoughts and acts Qualified Code(s): F42.2 - Mixed obsessional thoughts and acts Status: Acute Code(s): F42.9 - Obsessive-compulsive disorder, unspecified Plan discontinue clomipramine (due to poor tolerance) continue propranolol 10 mg bid for now start risperidone 025 mg BID will increase to 0.5 mg qhs / cont 0.25 mg qam may take quetiapine 100 mg qhs as PRN basis now will plan to switch from TCA to fluvoxamine (will hold off starting once AE have subsided) Patient educated on: diagnosis and medication risk/benefits Informed Consent: understands Reason for contiued partial hosp. stay Substantial Risk for: harm to self, inability to function and med/psych decompensation Certification I certify that partial hospital treatment is medically necessary due to the symptoms and problems resulting from the patient's mental illness and the failure to treat the patient at the partial hospital level of care would likely result in the patient requiring inpatient psychiatric care which could not be prevented at a less intensive level of care. Total time managing care of this patient today _30___ minutes. Discharge Plan Discharge Attending provider: Suzy Hahn Additional Instructions: Annel has an OP therapist Danielle Ballard through a private practice, in which her next scheduled appointment is November 14, 2023 at 9 AM. Annel has a med provider, Ariadna Toledo, in which her next scheduled appointment is on November 15, 2023 at 10:30 AM. Medications: New propranolol 10 mg tablet 5 - 10 mg PO BID Qty: 20 0RF risperidone 0.25 mg tablet 0.25 mg PO BID Qty: 30 0RF fluvoxamine 50 mg tablet See Rx Instructions .ROUTE .COMPLEX Qty: 30 0RF Rx Instructions: take 1/2 tablet po QHS for 4 days then increase to one tablet po QHS for 4 days, then increase to 1.5 tablets po QHS Continued clonazepam [Klonopin] 0.5 mg tablet 0.5 mg PO BID PRN (Reason: anxiety) Patient Comments: Last use last week. quetiapine 100 mg Tablet 100 mg PO BEDTIME Qty: 30 0RF Discontinued clomipramine 25 mg Capsule 50 mg PO BEDTIME Qty: 30 0RF Stand Alone Forms: Patient Portal Discharge page
[2023-11-01 10:19] VITALS: BP 102/83; PULSE 109
--- NOTE | 2023-11-01 22:12 | HO.PHPPROGNO ---
Subjective Subjective Date of Service: 11/01/23 Reason For Visit: anxiety,depression Interim History: Patient seen for follow up today. No major changes in the interim. She reports waking up for the past 2 nights, feeling shaky, tremor has returned. She did not continue on the propranolol but is agreeable to restarting on it. Said she misunderstood and thought she did not need to take it anymore since stopping the clomipramine. Aside from sleep disturbance and tremor, she is moticing geeling a little better, no longer noticing that burned tongue pain has resolved since stopping the TCA. No change in mood, still feeling depressed low, anhedonia, transient hopelessness, denies any SI, HI, AH, VH. Medication Compliance: Yes Side effects from medications: No Attending Groups: Yes Review of Systems Acute medical concerns: No Mental Status Exam Mental Status Exam Narrative: Alert, oriented, in no acute distress. Calm, cooperative, inhibited but engageable. No psychomotor agitation or neurovegetative retardation. Eye contact maintained. Mood depressed, affect constricted. Speech normal. Thought process linear, coherent. Thought content related to stressors, transient hopelessness, denies SI or HI. No paranoia or delusional content elicited. No evidence of psychosis. Insight and judgment - fair but adequate. 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 Code(s): F40.8 - Other phobic anxiety disorders Plan increase risperidone to 0.5 mg in am (may split as 0.25 mg in AM and lunch) increase risperidone to 0.75 mg qhs may add benztropine 0.5 mg qhs continue quetiapine 100 mg qhs PRN sleep off TCA/clomipramine x 2 days restart propranolol 10 mg BID for tremors, tacchycardia plan to start fluvoxamine 25 mg qhs once AE from TCA resolve start N-acetylcysteine (NAC) 200-250 mg qd to start (patient handed study to review) if tolerated may titrate toward NAC 600 mg BID lab work reviewed continue to monitor Patient educated on: diagnosis and medication risk/benefits Informed Consent: understands Reason for contiued partial hosp. stay Substantial Risk for: harm to self, inability to function, rapid decompensation and med/psych decompensation Certification I certify that partial hospital treatment is medically necessary due to the symptoms and problems resulting from the patient's mental illness and the failure to treat the patient at the partial hospital level of care would likely result in the patient requiring inpatient psychiatric care which could not be prevented at a less intensive level of care. Total time managing care of this patient today __30__ minutes. Discharge Plan Discharge Attending provider: Suzy Hahn Additional Instructions: Annel has an OP therapist Danielle Ballard through a private practice, in which her next scheduled appointment is November 14, 2023 at 9 AM. Annel has a med provider, Ariadna [place]edo, in which her next scheduled appointment is on November 15, 2023 at 10:30 AM. Medications: New fluvoxamine 50 mg tablet See Rx Instructions .ROUTE .COMPLEX Qty: 30 0RF Rx Instructions: take 1/2 tablet po QHS for 4 days then increase to one tablet po QHS for 4 days, then increase to 1.5 tablets po QHS acetylcysteine [NAC] 600 mg capsule 600 mg PO BID Qty: 60 0RF fish oil-dha-epa 1,200-144-216 mg capsule 1 cap PO DAILY 30 Days Qty: 30 0RF fluvoxamine 100 mg tablet 100 mg PO BEDTIME Qty: 30 0RF fluvoxamine 25 mg tablet See Rx Instructions .ROUTE .COMPLEX Qty: 30 0RF Rx Instructions: start one tablet po daily in AM for one week then increase to 2 tablets daily in AM (continue 100 mg tablet daily at night as directed) Continued risperidone 1 mg tablet 1 mg PO BID Qty: 60 0RF fluvoxamine 100 mg capsule,extended release 24hr 100 mg PO BEDTIME Qty: 30 0RF benztropine 0.5 mg tablet 0.5 mg PO BID PRN (Reason: EPS, stiffness in neck/jaw) Qty: 30 0RF clonazepam [Klonopin] 0.5 mg tablet 0.5 mg PO BID PRN (Reason: anxiety) Patient Comments: Last use last week. Changed propranolol 10 mg tablet 10 mg PO BID PRN (Reason: anxiety, tremor) Qty: 60 0RF Discontinued quetiapine 100 mg Tablet 100 mg PO BEDTIME Qty: 30 0RF clomipramine 25 mg Capsule 50 mg PO BEDTIME Qty: 30 0RF Stand Alone Forms: Patient Portal Discharge page Patient Education: Mood Disorders (DC) Print Language: [place]
--- NOTE | 2023-11-08 21:41 | HO.PHPPROGNO ---
Subjective Subjective Date of Service: 11/08/23 Reason For Visit: anxiety,depression Interim History: Patient seen for follow-up, anticipating discharge at the end of program today.? Still have some depression, but overall I feel better than when I started . Rates depression severity at a 5/10, down from a 9/10 on admission. Denies any SI (SI thoughts) they're gone, none since program started. OCD symptoms persist although they have lessened some with Risperdal. Is especially helpful for the couple of hours after taking. She understands it may take 1-2 months to see improvements in symptoms from the fluvoxamine. Continues to titrate dose of fluvoxamine which she is tolerating. Reports no acute issues or concerns. Medication compliant, medications well-tolerated. Denies any adverse effects. Tremors have mostly resolved and finds propranolol beneficial for trermors and anxiety. ? Denies any hopelessness or SI. Denies thoughts of harming self or others at this time. Denies any aggressive ideation or HI. Denies any paranoia or AH or VH. Sleep, appetite, energy stable. Medication Compliance: Yes Side effects from medications: No Attending Groups: Yes Review of Systems Acute medical concerns: No Mental Status Exam Mental Status Exam Narrative: Alert, oriented, in no acute distress. Calm, cooperative, inhibited but engageable. No psychomotor agitation or neurovegetative retardation. Eye contact maintained. Mood better less depressed, affect constricted. Speech normal. Thought process linear, coherent. Thought content related to stressors, more future-oriented, denies hopelessness, SI or HI. No paranoia or delusional content elicited. No evidence of psychosis. Insight and judgment - fair but adequate. 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 Plan Discharge from [facility] continue risperidone to 0.5 mg in am (may split as 0.25 mg in AM and lunch) may take 0.5 mg later in afternoon/evening PRN continue risperidone 1 mg qhs continue benztropine 0.5 mg qhs continue propranolol 10 mg BID for tremors, tacchycardia continue clonazepam 0.5 mg BID prn continue to titrate fluvoxamine to 75 mg qhs continue N-acetylcysteine (NAC) 200-250 mg qd to start (patient handed study to review) if tolerated may titrate toward NAC 600 mg BID discontinued: quetiapine (not needed), clomipramine (AE:tremors, paraesthesia) lab work reviewed Refills sent to pharmacy Will defer further medication management to outpatient provider - med provider appointment on 11/28 Safety plan reviewed *Discharge Diagnoses reviewed with patient, as well as treatment course, discharge plan (including medication regime, medication management, potential side effects) as well as treatment rationale were also revisited *If patient wishes, they are welcome to have their outpatient provider reach out to me for any further questions or clarification as pertains to this patient?s clinical care/treatment during their stay at [facility] (contact information provided to patient)? ? Patient educated on: diagnosis and medication risk/benefits Informed Consent: understands Reason for contiued partial hosp. stay Substantial Risk for: inability to function and med/psych decompensation Certification I certify that partial hospital treatment is medically necessary due to the symptoms and problems resulting from the patient's mental illness and the failure to treat the patient at the partial hospital level of care would likely result in the patient requiring inpatient psychiatric care which could not be prevented at a less intensive level of care. Total time managing care of this patient today __30__ minutes. Discharge Plan Discharge Attending provider: Suzy Hahn Additional Instructions: Annel has an OP therapist Danielle Ballard through a private practice, in which her next scheduled appointment is November 14, 2023 at 9 AM. Annel has a med provider, Ariadna [place], in which her next scheduled appointment is on November 15, 2023 at 10:30 AM. Medications: New fluvoxamine 50 mg tablet See Rx Instructions .ROUTE .COMPLEX Qty: 30 0RF Rx Instructions: take 1/2 tablet po QHS for 4 days then increase to one tablet po QHS for 4 days, then increase to 1.5 tablets po QHS acetylcysteine [NAC] 600 mg capsule 600 mg PO BID Qty: 60 0RF fish oil-dha-epa 1,200-144-216 mg capsule 1 cap PO DAILY 30 Days Qty: 30 0RF fluvoxamine 100 mg tablet 100 mg PO BEDTIME Qty: 30 0RF fluvoxamine 25 mg tablet See Rx Instructions .ROUTE .COMPLEX Qty: 30 0RF Rx Instructions: start one tablet po daily in AM for one week then increase to 2 tablets daily in AM (continue 100 mg tablet daily at night as directed) Continued risperidone 1 mg tablet 1 mg PO BID Qty: 60 0RF fluvoxamine 100 mg capsule,extended release 24hr 100 mg PO BEDTIME Qty: 30 0RF benztropine 0.5 mg tablet 0.5 mg PO BID PRN (Reason: EPS, stiffness in neck/jaw) Qty: 30 0RF clonazepam [Klonopin] 0.5 mg tablet 0.5 mg PO BID PRN (Reason: anxiety) Patient Comments: Last use last week. Changed propranolol 10 mg tablet 10 mg PO BID PRN (Reason: anxiety, tremor) Qty: 60 0RF Discontinued quetiapine 100 mg Tablet 100 mg PO BEDTIME Qty: 30 0RF clomipramine 25 mg Capsule 50 mg PO BEDTIME Qty: 30 0RF Stand Alone Forms: Patient Portal Discharge page Patient Education: Mood Disorders (DC) Print Language: Indonesian
== END 2023-11-08 23:59 | disposition home or self-care (01) ==
LOC: HO.PHPA 09:15
PROVIDERS: Visit Provider Psychiatry & Neurology Psychiatry
DX: F42.2 Mixed obsessional thoughts and acts (principal); F39 Unspecified mood [affective] disorder; F40.8 Other phobic anxiety disorders; Z79.899 Other long term (current) drug therapy
CPT/HCPCS: 90791; 90853